=== PATIENT | male | born 1995 | race Caucasian/White ===

== ENCOUNTER 2017-03-17 22:20 | Emergency (ER) | payer BC, OTHER ==
--- NOTE | 2017-03-17 23:14 | XR ---
EXAM: XR Chest, 2 Views CLINICAL HISTORY: Reason: cough TECHNIQUE: Frontal and lateral views of the chest. COMPARISON: 11/15/14 radiographs. FINDINGS: Limitations: Note some technical differences between the 2 exams including more of an apical lordotic projection. Lungs: Stable. No consolidation. Pleural space: Unremarkable. No effusion or pneumothorax. Heart: Within normal limits. Mediastinum: Unremarkable. Bones/joints: Unremarkable. IMPRESSION: No new acute intrathoracic abnormality is seen to account for the patient's cough.
--- NOTE | 2017-03-17 23:30 | ED ---
URI HPI - General Chief Complaint: Upper Respiratory Infection Stated Complaint: Cough/Sore Throat Time Seen by Provider: 03/17/17 22:31 Source: patient, RN notes reviewed Mode of arrival: ambulatory Limitations: no limitations - History of Present Illness Initial Comments: 21-year-old male present emergency department with chief complaint of cough and cold-like symptoms. Patient states it started a couple days ago. Patient states that he has a very sore throat. Denies any difficulty swallowing or breathing. Patient states it makes him a cough. Patient states that he has no ear pain no runny nose. No sick contacts or chest wall, medication relief. - Related Data Previous Rx's Medication Instructions Recorded Azithromycin [Zithromax Z-pack] 0 mg PO DIRECTED #1 pack 03/17/17 methylPREDNISolone [Medrol Dose 4 mg PO DIRECTED #1 pack 03/17/17 Pack] Allergies Allergy/AdvReac Type Severity Reaction Status Date / Time No Known Allergies Allergy Verified 03/17/17 22:41 Review of Systems ROS Statement: Those systems with pertinent positive or pertinent negative responses have been documented in the HPI. ROS Other: All systems not noted in ROS Statement are negative. Past Medical History Past Medical History: Asthma History of Any Multi-Drug Resistant Organisms: None Reported Past Surgical History: No Surgical Hx Reported Past Psychological History: ADD/ADHD Smoking Status: Former smoker Past Alcohol Use History: None Reported Past Drug Use History: None Reported General Exam Limitations: no limitations General appearance: alert, in no apparent distress Head exam: Present: atraumatic, normocephalic, normal inspection Eye exam: Present: normal appearance, PERRL, EOMI. Absent: scleral icterus, conjunctival injection, periorbital swelling ENT exam: Present: mucous membranes moist, TM's normal bilaterally, normal external ear exam. Absent: normal exam, normal oropharynx (Posterior pharynx erythematous) Neck exam: Present: normal inspection, full ROM. Absent: tenderness, meningismus, lymphadenopathy Respiratory exam: Present: normal lung sounds bilaterally. Absent: respiratory distress, wheezes, rales, rhonchi, stridor Cardiovascular Exam: Present: regular rate, normal rhythm, normal heart sounds. Absent: systolic murmur, diastolic murmur, rubs, gallop, clicks Course Vital Signs 03/17/17 22:21 Temperature 99.2 F Pulse Rate 102 H Respiratory 16 Rate Blood Pressure 139/87 O2 Sat by Pulse 98 Oximetry Medical Decision Making - Medical Decision Making 21-year-old male presented for URI symptoms. Patient appears to have acute pharyngitis. Patient's chest x-ray shows no acute abnormality. Patient also has cough which is related to sore throat. Patient placed on azithromycin, steroids. Return parameters were discussed. Disposition Clinical Impression: Pharyngitis, Bronchitis Disposition: HOME SELF-CARE Condition: Stable Instructions: Upper Respiratory Infection (ED) Additional Instructions: Please return to the Emergency Department if symptoms worsen or any other concerns. Prescriptions: Azithromycin [Zithromax Z-pack] 0 mg PO DIRECTED #1 pack methylPREDNISolone [Medrol Dose Pack] 4 mg PO DIRECTED #1 pack Referrals: None,Stated [Primary Care Provider] - 1-2 days Time of Disposition: 23:29
[2017-03-17 23:42] VITALS: BP 98/58; PULSE 95; RESP 18; TEMP 98.5
== END 2017-03-17 23:47 | disposition home or self-care (01) ==
LOC: EC 22:20
DX: J02.9 Acute pharyngitis, unspecified (principal); J40 Bronchitis, not specified as acute or chronic; Z87.891 Personal history of nicotine dependence
CPT/HCPCS: 71020; 99283